=== PATIENT | male | born 1980 | race Caucasian/White ===

== ENCOUNTER 2019-01-31 23:52 | Emergency (ER) | payer BC, OTHER ==
[2019-02-01] MEDS ORDERED: TORAdol 30 mg Injection IM ONE (01:02)
[2019-02-01] MEDS ORDERED: TORAdol 30 mg Injection ONE (01:20)
[2019-02-01 01:27] LABS: Absolute Neutrophil Ct (ANC) 7.42 (1.4-6.9); BASOPHIL % 0.4 % (0.0-0.4); Basophil (Absolute #) 0.04 (0-0.4); Eosinophil % 2.2 % (0.00-5.0); Eosinophil (Absolute #) 0.23 (0-0.5); Hematocrit 43.8 % (42-50); Hemoglobin 14.7 gm/dl (12.5-18.0); Lymphocyte (Absolute #) 2.06 (1.0-4.6); Lymphocytes % 19.5 % (24.0-44.0); Mean Cell Volume 86.1 fl (78-100); Mean Corpuscular Hemoglobin 28.9 pg (26-32); Mean Corpuscular Hgb Concent. 33.6 g/dl (32-36); Mean Platelet Volume 8.8 fl (6-9.5); Monocyte (Absolute #) 0.84 (0.0-1.3); Monocytes % 7.9 % (0.0-12.0); Platelet Count 237 K/mm3 (150-450); Red Blood Count 5.09 M/mm3 (4.1-5.6); Red Cell Distribution Width 13.8 % (11.5-14.0); White Blood Count 10.6 K/mm3 (4.0-10.5)
[2019-02-01 01:35] LABS: BLOOD UREA NITROGEN 18 mg/dL (9-20); CHLORIDE 105 mmol/L (98-107); Calcium 9.5 mg/dL (8.4-10.2); Carbon Dioxide 27 mmol/L (22-30); Creatinine 1 0.99 mg/dL (0.66-1.25); Glucose 89 mg/dL (74-106); Potassium 4.7 mmol/L (3.5-5.1); SODIUM 140 mmol/L (137-145)
--- NOTE | 2019-02-01 02:47 | ERPHSYRPT ---
- History of Present Illness Time Seen by Provider: 02/01/19 00:51 Source: patient Patient Subjective Stated Complaint: pt states approx 6 months ago he had a metal shaving in his hand. states since then he has felt a forign body in his hand. has tried to dig it out. starting tuesday- pt noticed pain and stiffness in his hand and has increased today. Triage Nursing Assessment: pt alert and oriented, answers questions approp. pt ambulatoryw ith steady gait noted. respirations nonlabored. tenderness noted to rt hand, worse to 2nd digit. swelling noted to second digit and mild swelling in rt hand. pt states he is not able to move fingers well. radial pulse and cap refill wnl. Physician History: METAL FB RT 2ND DIGIT APPROX 5-6 MONTHS AGO. 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 NEGATIVE FEVER ,NEGATIVE --LYMPHANGITIS , POS: PAIN WITH FLEX/EXTENSION RT HAND Occurred: other (S/S THIS WEEK ) Method of Injury: unknown Quality: constant Severity of Pain-Max: mild Severity of Pain-Current: moderate Extremities Pain Location: hand: right, 2nd finger: right, 3rd finger: right, 4th finger: right, 5th finger: right Modifying Factors: Improves With: movement Associated Symptoms: other (PAIN WITH RANCH SUPERVISOR RT HAND ) Allergies/Adverse Reactions: No Known Drug Allergies Allergy (Verified 02/01/19 00:14) Home Medications: Cephalexin Mh 500 mg [Keflex 500 mg] 500 mg PO TID 02/01/19 [History] Hx Tetanus, Diphtheria Vaccination/Date Given: No (unsure) Hx Influenza Vaccination/Date Given: Yes Hx Pneumococcal Vaccination/Date Given: No Immunizations Up to Date: No - Review of Systems Constitutional: No Symptoms Eyes: No Symptoms Ears, Nose, & Throat: No Symptoms Respiratory: No Symptoms Cardiac: No Symptoms Abdominal/Gastrointestinal: No Symptoms Genitourinary Symptoms: No Symptoms Musculoskeletal: Arthralgias, Joint Pain, Joint Swelling, Myalgias Skin: Other (GENERALIZED SWELLING RT HAND : DIGITITS WITH TENOSYNOVITIS S/S ) Neurological: No Symptoms Psychological: No Symptoms Endocrine: No Symptoms Hematologic/Lymphatic: No Symptoms Immunological/Allergic: No Symptoms All Other Systems: Reviewed and Negative - Past Medical History Pertinent Past Medical History: Yes Psycho-Social History: Anxiety Other Medical History: SOB works in [employer] - Past Surgical History Past Surgical History: Yes - Social History Smoking Status: Current every day smoker How long have you smoked: 10 yrs Exposure to second hand smoke: No Drug Use: none Patient Lives Alone: No - Nursing Vital Signs Nursing Vital Signs: Initial Vital Signs Temperature 98.1 F 02/01/19 00:00 Pulse Rate 80 02/01/19 00:00 Respiratory Rate 20 02/01/19 00:00 Blood Pressure 136/99 02/01/19 00:00 O2 Sat by Pulse Oximetry 98 02/01/19 00:00 Pain Scale Pain Intensity 7 - Physical Exam General Appearance: mild distress Eyes, Ears, Nose, Throat Exam: normal ENT inspection, TMs normal, pharynx normal Neck Exam: normal inspection, No meningismus Cardiovascular/Respiratory Exam: chest non-tender, normal breath sounds, heart sounds normal, no ecchymosis, no respiratory distress, decreased breath sounds ( SMOKER--ADVISED TO STOP SMOKING---DISCUSSED IN DEPTH WITH PATIENT) Abdominal Exam: non-tender, soft, no organomegaly, No no hernia, No guarding Back Exam: normal inspection, normal range of motion, No vertebral tenderness Shoulder Exam: normal inspection, non-tender, no evidence of injury, normal ROM Elbow/Forearm Exam: normal inspection, non-tender, no evidence of injury, normal ROM Wrist Exam: no evidence of injury, soft tissue tenderness Hand Exam: limited ROM, swelling Neuro/Tendon Exam: normal sensation, sensory deficit Mental Status Exam: oriented x 3, cooperative Skin Exam: other (POS: MILD SWELLING RT HAND/PALMAR SURFACE AND DIGITS DISTAL RT HAND POS: SIGNS: TENOSYNOVITIS EXT/FLEX TENDOND RT HAND ) SpO2 Interpretation: normal SpO2: 99 O2 Delivery: Room Air Procedures - Incision and Drainage Site: RT 2ND DIGIT BETWEEN PIP/DID Anesthesia: 1% Lidocaine cc's of anesthesia: 3 Blade Size: 10 I & D Procedure: hibiclens prep Results: other (PATIENT REFUSED ANY OTHER TREATMENT AFTER PREPEDED AND ANESTH FB-STILL INTACT-- NEGATIVE PURULENT DRAINAGE NEGATIVE S/S LYMPHANGITIS) - Splinting Location of Splint: Right, Hand, Wrist Splint Applied By: ED Physician Pre-Proc Neuro Vasc Exam: normal Post-Proc Neuro Vasc Exam: neurovascular intact - Course Nursing assessment & vital signs reviewed: Yes Ordered Tests: Active Orders 24 hr Category Date Time Status HAND (MINIMUM 3 VIEWS) Stat Exams 02/01/19 01:18 Taken BMP Stat Lab 02/01/19 01:20 Completed CBC W DIFF Stat Lab 02/01/19 01:20 Completed Medication Summary Discontinued Medications Generic Name Dose Route Start Last Admin Trade Name Freq PRN Reason Stop Dose Admin Ketorolac Tromethamine 60 mg 02/01/19 01:02 02/01/19 01:26 Toradol 30 Mg Injection IM 02/01/19 01:03 60 mg STAT ONE Administration Ketorolac Tromethamine Confirm 02/01/19 01:20 Toradol 30 Mg Injection Administered 02/01/19 01:21 Dose 60 mg .ROUTE .STK-MED ONE Lab/Rad Data: Laboratory Result Diagrams 02/01/19 01:20 02/01/19 01:20 Laboratory Results 02/01/19 02/01/19 Range/Units 01:20 01:20 WBC 10.6 H (4.0-10.5) K/mm3 RBC 5.09 (4.1-5.6) M/mm3 Hgb 14.7 (12.5-18.0) gm/dl Hct 43.8 (42-50) % MCV 86.1 (78-100) fl MCH 28.9 (26-32) pg MCHC 33.6 (32-36) g/dl RDW 13.8 (11.5-14.0) % Plt Count 237 (150-450) K/mm3 MPV 8.8 (6-9.5) fl Gran % 70.0 H (36.0-66.0) % Eos # (Auto) 0.23 (0-0.5) Absolute Lymphs (auto) 2.06 (1.0-4.6) Absolute Monos (auto) 0.84 (0.0-1.3) Lymphocytes % 19.5 L (24.0-44.0) % Monocytes % 7.9 (0.0-12.0) % Eosinophils % 2.2 (0.00-5.0) % Basophils % 0.4 (0.0-0.4) % Absolute Granulocytes 7.42 H (1.4-6.9) Basophils # 0.04 (0-0.4) Sodium 140 (137-145) mmol/L Potassium 4.7 (3.5-5.1) mmol/L Chloride 105 (98-107) mmol/L Carbon Dioxide 27 (22-30) mmol/L Anion Gap 13.0 (5-15) MEQ/L BUN 18 (9-20) mg/dL Creatinine 0.99 (0.66-1.25) mg/dL Estimated GFR > 60.0 ML/MIN Glucose 89 (74-106) mg/dL Calcium 9.5 (8.4-10.2) mg/dL - Progress Progress: improved, pain not gone completely, re-examined - Departure Departure Disposition: Home Clinical Impression: Tenosynovitis of right hand Metal foreign body in hand Qualifiers: Encounter type: initial encounter Laterality: right Qualified Code(s): S60.551A - Superficial foreign body of right hand, initial encounter Condition: Stable Critical Care Time: No Referrals: QUINTON JACK [Primary Care Provider] - Plan of Treatment: FOLLOW UP WITH ORTHO DOCTOR NEXT WEEK [facility] GIVEN TO PATIENT BY RN SPLINT IMMOBILIZATION DIRECTED LIGHT DUTY FOR 1 WEEK LIMITED USAGE RT HAND -- DISCUSSED
[2019-02-01] MEDS ORDERED: Depo-Medrol 40 MG/ML IM ONE (03:51)
[2019-02-01] MEDS ORDERED: Depo-Medrol 80 MG/ML ONE (03:54)
[2019-02-01 04:13] VITALS: BP 128/93; PULSE 81; O2SAT 96
--- NOTE | 2019-02-01 08:53 | XRAY ---
Indication: 2nd finger swelling since injury 6 months ago. Comparison: None 3 views of the right hand demonstrates 4 mm soft tissue foreign body 2nd middle phalanx anteriorly and old 5th metacarpal fracture deformity. No other bony, articular, or soft tissue abnormalities.
== END 2019-02-01 04:17 | disposition home or self-care (01) ==
LOC: ED 23:52
DX: R00.2 Palpitations (principal)
CPT/HCPCS: 36415; 73130; 80048; 85025; 96372; 99284; J1030; J1040; J1885